=== PATIENT | female | born 1990 | race Two or more races ===

== ENCOUNTER 2017-08-06 05:50 | Inpatient (IN) | payer BC ==
[2017-08-06] MEDS ORDERED: TERBUTALINE 1 MG/ML VIAL SQ PRN (05:58)
[2017-08-06] MEDS ORDERED: OXYTOCIN 10 UNIT/ML 1 ML VIAL IM PRN (05:58)
[2017-08-06] MEDS ORDERED: METHYLERGONOVINE 0.2 MG/ML 1 ML AMP IM PRN (05:58)
[2017-08-06] MEDS ORDERED: LIDOCAINE 1% (PF) 10 MG/ML (30 ML SDV) SQ PRN (05:58)
[2017-08-06] MEDS ORDERED: CARBOPROST TROMETHAMINE 250 MCG/ML 1 ML AMP IM PRN (05:58)
[2017-08-06 06:04] VITALS: BMI 42.7
[2017-08-06 06:14] LABS: Basophils % (A) 0 %; Eosinophils # (A) 0.1 k/uL (0-0.7); Eosinophils % (A) 1 %; HGB 14.6 gm/dL (11.4-16.0); Lymphocytes # (A) 2.3 k/uL (1.0-4.8); Lymphocytes % (A) 21 %; MCH 31.9 pg (25.0-35.0); MCHC 36.4 g/dL (31.0-37.0); MCV 87.8 fL (80.0-100.0); Mean Platelet Volume 7.9; Monocytes # (A) 0.6 k/uL (0-1.0); Monocytes % (A) 6 %; Neutrophils # (A) 7.5 k/uL (1.3-7.7); Neutrophils % (A) 70 %; Platelet Count 242 k/uL (150-450); RBC 4.56 m/uL (3.80-5.40); RDW 13.9 % (11.5-15.5); WBC 10.7 k/uL (3.8-10.6)
[2017-08-06] MEDS: LACTATED RINGERS 1,000 ML IV SCH ×3 (06:14→15:41)
[2017-08-06] MEDS: OXYTOCIN 20 UNITS/1000 ML NS 1,000 ML IV SCH (06:27)
--- NOTE | 2017-08-06 06:59 | P.HPOB ---
History of Present Illness H&P Date: 08/06/17 This is a 27-year-old white female 1 para 0 EDC 08/01/2017 at 40-5/7 weeks' gestation. Patient presents today for induction for postdates . Fetus is been active throughout the . Hernandez score noted to be 9. She denies vaginal bleeding or fluid leakage. Obstetric history significant for blood type A+, rubella status immune. VDRL testing, urine culture, hepatitis B surface antigen, HIV testing, gonorrhea and chlamydia cultures, group B strep cultures all negative. One-hour Glucola elevated, 3 hour GTT within normal limits. Past surgical history significant for wisdom teeth extraction. Current medications vitamins. ALLERGIES none known. Social history patient is , she is a nonsmoker, she denies alcohol or drug use. She is a teacher locally. On exam this is a pleasant white female, 5 foot 4 inches, 249 pounds, blood pressure 133/65. The general physical exam is within normal limits. The chest is clear in all cotton. Extremities reveal 2+ edema. Cervix is 1 cm dilated, soft, anterior, -1 station, vertex presentation, 60% effaced. Artificial amniorrhexis reveals clear fluid. heart rate is consistent with reactive NST. Impression: 40-5/7 weeks intrauterine , here for induction for postdates. Plan continue oxytocin augmentation per hospital protocol. Continue close maternal and surveillance. Anticipate normal spontaneous vaginal delivery. Review of Systems Constitutional: Reports as per HPI Past Medical History Past Medical History: No Reported History History of Any Multi-Drug Resistant Organisms: None Reported Past Surgical History: No Surgical Hx Reported Past Anesthesia/Blood Transfusion Reactions: No Reported Reaction Past Psychological History: No Psychological Hx Reported Smoking Status: Never smoker - Past Family History Mother Family Medical History: No Reported History Medications and Allergies Home Medications Medication Instructions Recorded Confirmed Type Pnv No.95/Ferrous Fum/Folic AC 1 each PO DAILY 08/06/17 08/06/17 History [ Multivitamin Tablet] Allergies Allergy/AdvReac Type Severity Reaction Status Date / Time No Known Allergies Allergy Verified 08/06/17 05:57 Exam - Vital Signs Vital signs: Vital Signs Temp Pulse Resp BP Pulse Ox 08/06/17 05:59 97.2 F L 109 H 16 133/65 98 Intake and Output 08/05/17 08/05/17 08/06/17 14:59 22:59 06:59 Other: # Voids 1 Weight 112.945 kg Patient Weight 08/06/17 06:59 Weight 112.945 kg See dictation under HPI please Results Result Diagrams: 08/06/17 06:00 Abnormal Lab Results - Last 24 Hours (Table) 08/06/17 Range/Units 06:00 WBC 10.7 H (3.8-10.6) k/uL Assessment and Plan Plan: Close maternal and surveillance. Oxytocin per hospital protocol. Anticipate normal spontaneous vaginal delivery. Time with Patient: Less than 30
[2017-08-06] MEDS ORDERED: BUTORPHANOL 1 MG/ML 1 ML VIAL IV PRN (11:08)
[2017-08-06] MEDS ORDERED: BUPIVACAINE (PF) 0.25% 30 ML VIAL ONE (15:01)
[2017-08-06] MEDS ORDERED: fentaNYL (PF) 50 MCG/ML 5 ML AMP ONE (15:01)
[2017-08-06] MEDS ORDERED: SODIUM CHLORIDE 0.9% 100 ML BAG ONE (15:01)
[2017-08-06] MEDS ORDERED: CITRIC ACID-SODIUM CITRATE 15 ML CUP PO ONE (18:42)
[2017-08-06] MEDS ORDERED: MORPHINE SULFATE (PF) 0.3 MG/0.3 ML SYR ONE (18:59)
[2017-08-06] MEDS ORDERED: ceFAZolin 1,000 MG VIAL ONE (18:59)
[2017-08-06] MEDS ORDERED: KETOROLAC 30 MG/ML 1 ML VIAL ONE (18:59)
[2017-08-06] MEDS ORDERED: OXYTOCIN 10 UNIT/ML 1 ML VIAL ONE (18:59)
[2017-08-06] MEDS ORDERED: DEXAMETHASONE SOD PHOS (MDV) 100 MG/10 ML VIAL ONE (18:59)
[2017-08-06] MEDS ORDERED: diphenhydrAMINE 50 MG/ML 1 ML VIAL IVP PRN ×3 (19:52→19:58)
[2017-08-06] MEDS ORDERED: ONDANSETRON 4 MG/2 ML VIAL IVP PRN (19:52)
[2017-08-06] MEDS ORDERED: Acetaminophen-Codeine 300-30mg TAB PO PRN (19:52)
[2017-08-06] MEDS ORDERED: diphenhydrAMINE 25 MG CAP PO PRN (19:52)
[2017-08-06] MEDS ORDERED: diphenhydrAMINE 50 MG CAP PO PRN (19:52)
[2017-08-06] MEDS ORDERED: SIMETHICONE 80 MG CHEWABLE PO PRN (19:52)
[2017-08-06] MEDS ORDERED: METOCLOPRAMIDE 5 MG/ML 2 ML VIAL IVP PRN (19:52)
[2017-08-06] MEDS ORDERED: NALOXONE 0.4 MG/ML 1 ML VIAL IV PRN ×2 (19:52→19:58)
[2017-08-06] MEDS ORDERED: ZOLPIDEM 5 MG TAB PO PRN (19:52)
--- NOTE | 2017-08-06 19:52 | P.OP ---
Date of Procedure: 08/06/17 Preoperative Diagnosis: 40-5/7 weeks' gestation, arrest of dilatation and descent Postoperative Diagnosis: Same, macrosomia, 10 lbs. 5 oz. male, left occiput transverse position Procedure(s) Performed: Primary low transverse section Anesthesia: epidural Surgeon: Amalia Russell Scientific Manager #1: Nba Das Estimated Blood Loss (ml): 600 IV fluids (ml): 1,000 Urine output (ml): 200 Pathology: other (Placenta) Condition: stable Disposition: PACU Description of Procedure: Patient had arrest of dilatation and descent at 4 cm, 90%, -2. No cervical change was noted over the course of 3 hours. Decision was made to proceed with primary low transverse section under previously placed epidural analgesia. This was "topped off" per the anesthesia staff. Ramirez catheter placed, Bicitra given, antibiotics given. Patient is brought to the operating room and placed in the dorsal supine position with left lateral uterine displacement. The appropriate timeout is performed to assure proper patient and procedural identification. The abdomen is prepped and draped in usual sterile fashion, the analgesia is checked and noted to be adequate. A low transverse skin incision is made in this is carried down through the subcutaneous tissue that is approximately 8 cm deep. Fascia is isolated, scored and extended bilaterally with curved Sorenson scissors. Peritoneum is next identified and incised, there is no bowel or bladder involvement. A low transverse uterine incision is made in this is carried down through the myometrium. The infant is found to be in the left occiput transverse position and the head is brought up through the uterine incision. There is no nuchal cord noted. The patient is officially delivered of a liveborn male infant at 1912 hrs. Umbilical cord is doubly clamped and ligated , he is handed to waiting nurses for evaluation where scores of 9 and 9 at one and 5 minutes respectively are given. The placentas delivered manually, it is inspected and noted to be intact with trivascular cord at 1913 hrs. At this time the uterus is externalized and massaged. Bladder blade is placed over the dome of the bladder. The uterus is swept clean with a sterile sponge to avoid any retained products of conception. The edges of the incision are grasped with Lopez clamps. The uterus is closed in a two-step fashion, first layer running locking, second layer imbricated. Ramirez is noted to be draining clear urine throughout the procedure. Uterus is gently placed back into the abdominal cavity, bilateral gutters are inspected and cleaned. The abdomen is suctioned with suction on guard. The incision of the uterus is again hemostatically intact, well approximated. Both tubes and ovaries appear normal to inspection. The peritoneum was allowed to close by secondary intention. The fascia is closed in a running stitch of 0 Vicryl with over ligation in the midline for excellent approximation. Subcutaneous tissue is irrigated, noted to be clean and dry. It is reapproximated with 3-0 Vicryl in a running fashion. 4-0 undyed Monocryl is used for final skin closure in a subcuticular manner. Steri-Strips and Mastisol are applied to the wound, dressing is applied. Uterus is then massaged and a small amount of blood is expressed. A cleaned. Pad is placed. All sponge needle and enhancement counts are correct at the end of the procedure. Patient is brought back to recovery room in very good condition with stable vital signs including a pulse of 105, blood pressure 118/ 62, 100% O2 saturation. Infant's weight 10 lbs. 5 oz. or 4690 g. The family is requesting circumcision further infant son.
[2017-08-07] MEDS: LACTATED RINGERS 1,000 ML IV SCH ×3 (00:29→20:42)
[2017-08-07] MEDS: IBUPROFEN 600 MG TAB PO PRN ×3 (04:13→16:35)
[2017-08-07] MEDS: SENNOSIDES-DOCUSATE SODIUM 1 EACH TAB PO SCH ×4 (04:13→19:46)
--- NOTE | 2017-08-07 05:36 | P.PN ---
Progress Note - Text Progress Note Date: 08/07/17 Patient was seen at 5:30 am. 27 yo female Status post . Post-op day # 1. Patient received Epiduralal Duramorph. Patient was seen today, sitting up in bed no complaints, pain VAS score 0/10, no headache, no itching, no nausea and vomiting. Assessment and plan: Doing well in general no complications from anesthesia.
--- NOTE | 2017-08-07 07:55 | P.PN ---
Subjective Progress Note Date: 08/07/17 Principal diagnosis: Postoperative day #1 Slept well, positive flatus, no complaints. Pain well controlled. Objective - Vital Signs Vital signs: Vital Signs Temp 98 F 08/07/17 04:00 Pulse 79 08/07/17 04:00 Resp 16 08/07/17 06:00 BP 119/70 08/07/17 04:00 Pulse Ox 100 08/06/17 21:45 Intake & Output 08/06/17 08/07/17 08/07/17 18:59 06:59 18:59 Intake Total 2000 Output Total 2600 Balance 2000 -2600 Intake: Intake, IV Titration 2000 Amount Lactated Ringers 1,000 ml 2000 @ 125 mls/hr IV .Q8H EMILY Rx#:[id number] Output: Urine 2600 Other: Voiding Method Indwelling Catheter # Voids 0 - Constitutional General appearance: Present: average body habitus, cooperative - EENT Eyes: Present: PERRLA ENT: Present: hearing grossly normal - Neck Neck: Present: normal ROM Thyroid: bilateral: normal size - Respiratory Respiratory: bilateral: CTA - Cardiovascular Rhythm: regular - Gastrointestinal General gastrointestinal: Present: normal bowel sounds - Integumentary Integumentary: Present: normal - Neurologic Neurologic: Present: CNII-XII intact - Musculoskeletal Musculoskeletal: Present: gait normal, strength equal bilaterally - Psychiatric Psychiatric: Present: A&O x's 3, appropriate affect, intact judgment & insight - Labs CBC & Chem 7: 08/06/17 06:00 Assessment and Plan Plan: Continue postoperative care. Circumcision performed this morning. Advanced diet and activity. Possible discharge home tomorrow. Time with Patient: Less than 30
[2017-08-07 09:42] LABS: Basophils % (A) 0 %; Eosinophils # (A) 0.1 k/uL (0-0.7); Eosinophils % (A) 0 %; HCT 35.8 % (34.0-46.0); HGB 12.8 gm/dL (11.4-16.0); Lymphocytes # (A) 1.6 k/uL (1.0-4.8); Lymphocytes % (A) 13 %; MCH 32.4 pg (25.0-35.0); MCHC 35.8 g/dL (31.0-37.0); MCV 90.6 fL (80.0-100.0); Mean Platelet Volume 7.9; Monocytes # (A) 0.8 k/uL (0-1.0); Monocytes % (A) 6 %; Neutrophils # (A) 9.8 k/uL (1.3-7.7); Neutrophils % (A) 79 %; Platelet Count 210 k/uL (150-450); RBC 3.95 m/uL (3.80-5.40); RDW 14.2 % (11.5-15.5); WBC 12.4 k/uL (3.8-10.6)
[2017-08-07] MEDS: ACETAMINOPHEN TAB 325 MG TAB PO PRN ×2 (15:47→19:46)
[2017-08-07] MEDS: OXYTOCIN 20 UNITS/1000 ML NS 1,000 ML IV SCH (20:42)
[2017-08-08] MEDS: IBUPROFEN 600 MG TAB PO PRN ×4 (00:04→23:58)
[2017-08-08] MEDS: ACETAMINOPHEN TAB 325 MG TAB PO PRN ×4 (04:01→20:01)
[2017-08-08] MEDS: SENNOSIDES-DOCUSATE SODIUM 1 EACH TAB PO SCH ×2 (07:42→20:02)
--- NOTE | 2017-08-08 08:03 | P.DS ---
Providers Date of admission: 08/06/17 05:50 Expected date of discharge: 08/08/17 Attending physician: Amalia Russell Primary care physician: Stated None Hospital Course: This is a 27-year-old white female 1 para 0 EDC 08/01/2017 at 40-5/7 weeks' gestation. Patient presented for induction for postdates . She progressed to 4 cm dilatation but then had arrest of dilatation and descent , and underwent a primary low transverse section. She gave to a liveborn male with scores of 9 and 9, he weighed 10 lbs. 5 oz. or 4690 g. He was in the left occiput transverse position. There was an estimated blood loss of 600 mL recorded. Please see dictated history and physical as well as operative note for details. This morning the patient is doing well. She is voiding, ambulate in, passing flatus without difficulty. Vital signs are stable and she is afebrile. Extremities reveal trace edema. Incision is clean and dry, intact, with Steri- Strips well approximated. circumcision has been performed. AB seems to be doing well, breast-feeding is progressing nicely. Patient is given a prescription for a double electric breast pump per her request. Fundus is firm and in the midline, symmetric and 18 week size. Lochia rubra is minimal to moderate. Patient is being discharged home in very good condition. She will follow-up with me in the office in 2 weeks for incision check. I reminded her no driving , no intercourse, no tampons or douching. She will use [id number] ibuprofen products as needed for pain, 200 mg pills, 3 every 6 hours as needed. I've asked her to call me with any fevers shakes or chills, foul smelling or copious lochia, with the passage of large blood clots, or indeed with any problems issues or complaints. Patient Condition at Discharge: Good Plan - Discharge Summary New Discharge Prescriptions: No Action Pnv No.95/Ferrous Fum/Folic AC [ Multivitamin Tablet] 1 each PO DAILY Discharge Medication List Pnv No.95/Ferrous Fum/Folic AC [ Multivitamin Tablet] 1 each PO DAILY [History] Follow up Appointment(s)/Referral(s): Amalia Russell MD [STAFF PHYSICIAN] - 2 Weeks Discharge Disposition: HOME SELF-CARE
[2017-08-09] MEDS: ACETAMINOPHEN TAB 325 MG TAB PO PRN ×2 (04:41→20:50)
[2017-08-09] MEDS: IBUPROFEN 600 MG TAB PO PRN ×2 (10:54→19:01)
[2017-08-09] MEDS: SENNOSIDES-DOCUSATE SODIUM 1 EACH TAB PO SCH ×2 (10:55→21:27)
[2017-08-10] MEDS: IBUPROFEN 600 MG TAB PO PRN ×2 (04:48→12:31)
[2017-08-10] MEDS: SENNOSIDES-DOCUSATE SODIUM 1 EACH TAB PO SCH (08:57)
[2017-08-10] MEDS: ACETAMINOPHEN TAB 325 MG TAB PO PRN (08:58)
[2017-08-10 09:03] VITALS: BP 146/74; PULSE 86; RESP 16; TEMP 98.5
--- NOTE | 2017-08-10 09:11 | P.PN ---
Subjective Progress Note Date: 08/10/17 Principal diagnosis: Postop day 4 status post primary low transverse section secondary to arrest of labor, suspected macrosomia On this postoperative day #4 she is doing well. She is ambulating and voiding without difficulty, her pain is well-controlled. She denies concerns. She did stay secondary to a jaundice issue, and the baby has been on a bili blanket in the room. He is improving and possibly could be discharged home today. min does realize that today she will be discharged in addition Objective - Vital Signs Vital signs: Vital Signs Temp 98.5 F 08/10/17 08:00 Pulse 86 08/10/17 08:00 Resp 16 08/10/17 08:00 BP 146/74 08/10/17 08:00 Pulse Ox 99 08/10/17 00:00 - Constitutional General appearance: Present: cooperative, no acute distress - Gastrointestinal Gastrointestinal Comment(s): incision c/d/i General gastrointestinal: Present: soft - Labs CBC & Chem 7: 08/07/17 09:09 Assessment and Plan (1) Term Current Visit: Yes Status: Acute Code(s): Z34.80 - ENCOUNTER FOR SUPRVSN OF NORMAL , UNSP TRIMESTER SNOMED Code(s): 56445553 (2) Status post delivery Narrative/Plan: will plan d/c home today routine post op care instructions are rviewed with pt, she will call for post op appt. Current Visit: Yes Status: Acute Code(s): Z98.891 - HISTORY OF UTERINE SCAR FROM PREVIOUS SURGERY SNOMED Code(s): 491255048 Time with Patient: Less than 30
--- NOTE | 2017-08-10 09:12 | P.PN ---
Subjective Progress Note Date: 08/09/17 Principal diagnosis: POD 3 LTCS secondary to arrest of labor and suspected macrosomia. Patient has done well postoperatively, she was anticipating discharge today but secondary to infant needing further light therapy she elected to stay. She is doing well postoperatively, lochia is minimal, ambulating and voiding without difficulty. She is without complaints on this postop day #3 Objective - Vital Signs Vital signs: Vital Signs Temp 98.7 F 08/09/17 15:57 Pulse 90 08/09/17 15:57 Resp 18 08/09/17 15:57 BP 149/82 08/09/17 15:57 Pulse Ox 98 08/09/17 15:57 Intake & Output 08/09/17 08/09/17 08/10/17 06:59 18:59 06:59 Other: # Voids 1 - Constitutional General appearance: Present: cooperative, no acute distress - Gastrointestinal Gastrointestinal Comment(s): Incision is noted to be clean dry and intact - Labs CBC & Chem 7: 08/07/17 09:09 Assessment and Plan (1) Term Current Visit: Yes Status: Acute Code(s): Z34.80 - ENCOUNTER FOR SUPRVSN OF NORMAL , UNSP TRIMESTER SNOMED Code(s): 88485575 (2) Status post delivery Narrative/Plan: Doing well postoperatively will continue routine postoperative care Current Visit: Yes Status: Acute Code(s): Z98.891 - HISTORY OF UTERINE SCAR FROM PREVIOUS SURGERY SNOMED Code(s): 729897303 Time with Patient: Less than 30
== END 2017-08-10 15:20 | disposition home or self-care (01) | DRG 766 ==
LOC: 4FBP 05:50
PROVIDERS: ADMIT Obstetrics & Gynecology; ATTEND Obstetrics & Gynecology
PROC: 10D00Z1 Extraction of Products of Conception, Low, Open Approach (ICD-10-PCS; principal; 2017-08-06 19:16)
PROC: 3E0R3NZ Introduction of Analgesics, Hypnotics, Sedatives into Spinal Canal, Percutaneous Approach (ICD-10-PCS; principal; 2017-08-06 19:16)
PROC: 10907ZC Drainage of Amniotic Fluid, Therapeutic from Products of Conception, Via Natural or Artificial Opening (ICD-10-PCS; principal; 2017-08-06 19:16)
PROC: 3E033VJ Introduction of Other Hormone into Peripheral Vein, Percutaneous Approach (ICD-10-PCS; principal; 2017-08-06 19:16)
DX: O48.0 Post-term pregnancy (principal); O32.4XX0 Maternal care for high head at term, not applicable or unspecified; O36.63X0 Maternal care for excessive fetal growth, third trimester, not applicable or unspecified; Z37.0 Single live birth; Z3A.40 40 weeks gestation of pregnancy; O62.0 Primary inadequate contractions
CPT/HCPCS: 85025; 86850; 86900; 86901; 88307

== ENCOUNTER → 2021-07-26 | Outpatient (CLI) | payer BC ==
--- NOTE | 2021-07-27 11:20 | MM ---
Reason for exam: clinical finding. Baseline mammogram. History: Family history of breast cancer in maternal grandmother. Physical Findings: A clinical breast exam by your physician is recommended on an annual basis and results should be correlated with mammographic findings. MG 3D Diag Mammo W/Cad WOODY Bilateral CC and MLO view(s) were taken. The breast tissue is extremely dense which could obscure a lesion on mammography. There is no discrete abnormality including area of concern. These results were verbally communicated with the patient and result sheet given to the patient on 07/26/21. ASSESSMENT: Incomplete: need additional imaging evaluation, BI-RAD 0 RECOMMENDATION: Ultrasound of the right breast. (palpable) Manage patient on a clinical basis.
--- NOTE | 2021-07-27 11:21 | USB ---
Reason for exam: additional evaluation requested from abnormal screening. History: Family history of breast cancer in maternal grandmother. US Breast Limited RT Right limited breast ultrasound including focal area of concern, retroareolar and axilla demonstrates no cystic or solid lesion seen. These results were verbally communicated with the patient and result sheet given to the patient on 07/26/21. ASSESSMENT: Negative, BI-RAD 1 RECOMMENDATION: Routine screening mammogram of both breasts at age 40. Manage patient on a clinical basis.
== END | disposition home or self-care (01) ==
LOC: RADMAMWWP 13:24
PROVIDERS: ATTEND Obstetrics & Gynecology
DX: N63.0 Unspecified lump in unspecified breast (principal); Z80.3 Family history of malignant neoplasm of breast
CPT/HCPCS: 77062; 77066

== ENCOUNTER → 2023-03-28 | Outpatient (CLI) | payer BC ==
[2023-03-28 10:36] LABS: Amorphous Sediment,Urine Rare /hpf; Appearance,Urine Cloudy (Clear); Bacteria,Urine Moderate /hpf; Bilirubin,Urine Negative (Negative); Blood,Urine Negative (Negative); Calcium Oxalate Crystals,Urine Occasional /hpf; Color,Urine Yellow; Glucose,Urine (UA) 3+ (Negative); Ketones,Urine Trace (Negative); Leukocyte Esterase,Urine Trace (Negative); Mucus,Urine Few /hpf; Nitrite,Urine Negative (Negative); PH, Urine 6.5 (5.0-8.0); Protein,Urine 1+ (Negative); RBC,Urine 1 /hpf (0-5); Specific Gravity,Urine 1.028 (1.001-1.035); Squamous Epithelial Cell,Urine 5 /hpf (0-4); Urobilinogen,Urine <2.0 mg/dL (<2.0); WBC,Urine 7 /hpf (0-5)
--- NOTE | 2023-03-28 12:37 | US ---
EXAMINATION TYPE: US OB BPP wo non-stress DATE OF EXAM: 03/28/2023 COMPARISON: NONE CLINICAL INDICATION: Female, 32 years old with history of nonreactive NST; TECHNIQUE: Transabdominal (TA). Scoring by the program aide group work during real-time assessment. FINDINGS: BPP PARAMETERS: PRESENTATION: Vertex HEART RATE: 156 bpm RHYTHM: Normal HOMER: 13.6 DIAPHRAGM IMAGED: YES BPP SCORIN. Breathin (1 episode of breathing of 30 second duration in 30 minutes of scanning time) 2. Movement: 2 (at least 3 discrete body movements in 30 minutes) 3. Tone: 2 (1 episode of active flexion/extension of limb) 4. HOMER: 2 (HOMER index > 5cm) IMPRESSION: TOTAL SCORE: 8 / 8
[2023-03-28 12:39] LABS: Basophils % (A) 0 %; Eosinophils # (A) 0.1 k/uL (0-0.7); Eosinophils % (A) 1 %; HCT 37.7 % (34.0-46.0); Lymphocytes # (A) 1.8 k/uL (1.0-4.8); Lymphocytes % (A) 20 %; MCH 31.3 pg (25.0-35.0); MCHC 34.6 g/dL (31.0-37.0); MCV 90.6 fL (80.0-100.0); Mean Platelet Volume 8.6; Monocytes # (A) 0.5 k/uL (0-1.0); Monocytes % (A) 5 %; Neutrophils # (A) 6.3 k/uL (1.3-7.7); Neutrophils % (A) 72 %; Platelet Count 245 k/uL (150-450); RBC 4.16 m/uL (3.80-5.40); RDW 13.9 % (11.5-15.5); WBC 8.8 k/uL (3.8-10.6)
[2023-03-28 12:58] LABS: ALT 13 U/L (4-34); AST 22 U/L (14-36); African American GFR (CKD) >90 (>60 ml/min/1.73 sqM); Alkaline Phosphatase 148 U/L (38-126); Anion Gap 9 mmol/L; Blood Urea Nitrogen 4 mg/dL (7-17); Calcium 8.5 mg/dL (8.4-10.2); Carbon Dioxide 17 mmol/L (22-30); Chloride 109 mmol/L (98-107); Glucose 88 mg/dL (74-99); Non-African American GFR(CKD) >90 (>60 ml/min/1.73 sqM); Potassium 3.9 mmol/L (3.5-5.1); Sodium 135 mmol/L (137-145); Total Bilirubin 0.4 mg/dL (0.2-1.3); Total Protein 5.6 g/dL (6.3-8.2); Uric Acid 3.9 mg/dL (3.7-7.4)
[2023-03-28 12:59] LABS: Creatinine,Urine Random 163.2 mg/dL; Protein/Creatinine Ratio,Urine 0.067
[2023-03-28 13:48] VITALS: BP 128/76; RESP 18; TEMP 96.6
--- NOTE | 2023-04-08 09:16 | P.MSEPDOC ---
Presenting Problems - Arrival Data Date of Arrival on Unit: 03/28/23 Time of Arrival on Unit: 09:15 Mode of Transport: Ambulatory - Complaint OB-Reason for Admission/Chief Complaint: PIH Comment: Pt stated she had an episode of feeling like her heart was racing, difficulty breathing and a BP of 148/84 on auotmatic cuff at home Medical History - Information : 2 Para: 1 Term: 1 : 0 Abortions: Spontaneous or Elective: 0 Number of Living Children: 1 - Gestational Age Gestational Age by DEYANIRA (wks/days): 38 Weeks and 1 Days - History Complications: Prior Review of Systems - Review of Systems Constitutional: No problems Breast: No problems ENT: No problems Cardiovascular: No problems Respiratory: No problems Gastrointestinal: No problems Genitourinary: No problems Musculoskeletal: No problems Neurological: No problems Skin: No problems Vital Signs - Temperature Temperature: 96.6 F Temperature Source: Temporal Artery Scan - Respirations Respiratory Rate: 18 Oxygen Delivery Method: Room Air O2 Sat by Pulse Oximetry: 97 - Blood Pressure Right Arm Blood Pressure: 128/76 Blood Pressure Mean: 93 Blood Pressure Source: Automatic Cuff Medical Screen Scoring - Uterine Contractions Resting: Soft to palpation - Assessment - Baby A Baseline FHR: 150's Heart Rate - NICHD Category: Category I (Normal) NST: Non-reactive Physician Notification - Physician Notified Physician Notified Date: 03/28/23 Physician Notified Time: 10:06 Physician: Kimberly Malcolm New Order Received: Yes - Notification Comment Comment: Orders for triage visit: NST, UA, oral hydration, P/c urine ratio, CBS w diff, CMP, uric acid, BPP Maternal Triage Index - Maternal Triage Index Presenting for scheduled procedure w/no complaint: No - Stat/Priority 1 Stat Priority 1: No - Urgent/Priority 2 Urgent Priority 2: Yes Provider Notified: Kimberly Malcolm Provider Notified Time: 10:06 Criteria Met for Priority 2: High BP on home automatic cuff 148/84 Disposition - Disposition OB Disposition: Physician follow up in office, Triage, Discharge to home, Written follow up instructions reviewed Transferred to:: Home Discharge Date: 03/28/23 Discharge Time: 13:13 I agree with the RN Medical Screening Exam: Yes Physician's MSE Comment: I have neither seen nor examined the patient Case reviewed; plan agreed upon as documented in EMR&OBIX.: Yes Diagnosis: MATERNAL CARE FOR PROBLEM, UNSP, THIRD * DO NOT USE *
== END | disposition home or self-care (01) ==
LOC: FBPOP 09:15
PROVIDERS: ATTEND Obstetrics & Gynecology
DX: O13.3 Gestational [pregnancy-induced] hypertension without significant proteinuria, third trimester (principal); Z3A.38 38 weeks gestation of pregnancy; Z91.048 Other nonmedicinal substance allergy status; Z79.82 Long term (current) use of aspirin
CPT/HCPCS: 59025; 76819; 80053; 81001; 82570; 84156; 84550; 85025; 99213

== ENCOUNTER 2023-04-03 09:55 | Inpatient (IN) | payer BC ==
[2023-04-03] MEDS ORDERED: CARBOPROST TROMETHAMINE 250 MCG/ML 1 ML AMP IM PRN (10:46)
[2023-04-03] MEDS ORDERED: CITRIC ACID-SODIUM CITRATE 15 ML CUP PO ONE (10:46)
[2023-04-03] MEDS ORDERED: miSOPROStoL 200 MCG TAB PO PRN (10:46)
[2023-04-03] MEDS ORDERED: ceFAZolin 3 GM in SODIUM CHLORIDE 0.9% 100 ML IVPB ONE (10:46)
[2023-04-03] MEDS ORDERED: LACTATED RINGERS 1,000 ML IV ONE (10:46)
[2023-04-03] MEDS ORDERED: TRANEXAMIC 1,000 MG/100ML-NACL 1,000 MG in EMPTY BAG 1 BAG IV PRN (10:46)
[2023-04-03] MEDS ORDERED: OXYTOCIN 10 UNIT/ML 1 ML VIAL IM PRN (10:46)
[2023-04-03] MEDS ORDERED: METHYLERGONOVINE 0.2 MG/ML 1 ML AMP IM PRN (10:46)
[2023-04-03] MEDS ORDERED: LACTATED RINGERS 1,000 ML IV SCH (11:00)
[2023-04-03 11:24] LABS: Basophils % (A) 0 %; Eosinophils # (A) 0.1 k/uL (0-0.7); Eosinophils % (A) 1 %; HCT 36.6 % (34.0-46.0); HGB 12.4 gm/dL (11.4-16.0); Lymphocytes # (A) 1.4 k/uL (1.0-4.8); Lymphocytes % (A) 13 %; MCH 30.1 pg (25.0-35.0); MCV 88.3 fL (80.0-100.0); Mean Platelet Volume 9.3; Monocytes # (A) 0.7 k/uL (0-1.0); Monocytes % (A) 6 %; Neutrophils # (A) 8.3 k/uL (1.3-7.7); Neutrophils % (A) 78 %; Platelet Count 224 k/uL (150-450); RBC 4.14 m/uL (3.80-5.40); WBC 10.7 k/uL (3.8-10.6)
--- NOTE | 2023-04-03 11:28 | P.HPOB ---
History of Present Illness H&P Date: 04/03/23 Chief Complaint: Scheduled repeat section with bilateral salpingectomy Ms. Morales is a 32 year old at 39 weeks and 0 days with EDC of 04/10/2023 (by LMP consistent with 8 week US) who presents to labor and delivery today for scheduled repeat section with bilateral salpingectomy. The has been complicated by large for gestational age fetus measuring in the 90%ile. The patient has also struggled with depression, for which she was started on Zoloft with great results. history: 1 FTCS workup: blood type A positive, antibody negative, rubella immune, VDRL non-reactive, HIV negative, HBsAg negative, HCV Ab negative, gonorrhea negative, chlamydia negative, 1 hour GTT elevated > 3 hour GTT within normal limits, GBS negative. s/p TDap on 01/21/2023. Past Medical History Past Medical History: No Reported History History of Any Multi-Drug Resistant Organisms: None Reported Past Surgical History: Section Additional Past Surgical History / Comment(s): wisdom teeth Past Anesthesia/Blood Transfusion Reactions: No Reported Reaction Past Psychological History: Depression Additional Psychological History / Comment(s): low grade depression Smoking Status: Never smoker Past Alcohol Use History: None Reported Past Drug Use History: None Reported - Past Family History Mother Family Medical History: No Reported History Medications and Allergies Home Medications Medication Instructions Recorded Confirmed Type Pnv No.95/Ferrous Fum/Folic AC 1 each PO DAILY 08/06/17 04/03/23 History [ Multivitamin Tablet] Aspirin [Adult Low Dose Aspirin EC] 81 mg PO DAILY 03/28/23 04/03/23 History Cetirizine HCl [Zyrtec] 10 mg PO DAILY 03/28/23 04/03/23 History Sertraline [Zoloft] 50 mg PO DAILY 03/28/23 04/03/23 History Allergies Allergy/AdvReac Type Severity Reaction Status Date / Time tape AdvReac Itching Uncoded 04/03/23 10:23 Exam Vital Signs Temp Pulse Resp BP Pulse Ox 04/03/23 10:23 97.8 F 95 18 126/75 97 Intake and Output 04/02/23 04/03/23 04/03/23 22:59 06:59 14:59 Other: Weight 122.924 kg Focused physical exam is performed. This is a gravid woman in no apparent distress. Breathing is non-labored. Abdomen is gravid and non-tender. heart tones are reactive and reassuring on NST. Extremities are non-tender and non-edematous. Assessment and Plan Assessment: 32 year old at 39 weeks and 0 days presenting for repeat c/s with bilateral salpingectomy Plan: NPO, mIVF, IV Ancef, c/s protocol
[2023-04-03] MEDS ORDERED: PHENYLEPHRINE-0.9% NACL SYG 1,000 MCG/10 ML SYRINGE ONE (12:04)
[2023-04-03] MEDS ORDERED: KETOROLAC 15 MG/ML 1 ML VIAL ONE (12:04)
[2023-04-03] MEDS ORDERED: OXYTOCIN 30 UNITS/500 ML NS BAG IV ONE (12:04)
[2023-04-03] MEDS ORDERED: ONDANSETRON 4 MG/2 ML VIAL ONE (12:04)
[2023-04-03] MEDS ORDERED: MORPHINE SULFATE (PF) 0.3 MG/0.3 ML SYR ONE (12:04)
[2023-04-03] MEDS ORDERED: ePHEDrine 50 MG/ML 1 ML VIAL ONE (12:04)
[2023-04-03] MEDS ORDERED: NALBUPHINE 10 MG/ML (10 ML MDV) ONE (12:04)
[2023-04-03] MEDS ORDERED: MORPHINE SULFATE 2 MG/ML SYRINGE IVP PRN (13:01)
[2023-04-03] MEDS ORDERED: KETOROLAC 15 MG/ML 1 ML VIAL IVP PRN (13:01)
[2023-04-03] MEDS ORDERED: NALOXONE 0.4 MG/ML 1 ML VIAL IV PRN ×2 (13:01→13:08)
[2023-04-03] MEDS ORDERED: NALBUPHINE 10 MG/ML (10 ML MDV) IV PRN (13:01)
[2023-04-03] MEDS ORDERED: METOCLOPRAMIDE 5 MG/ML 2 ML VIAL IVP PRN ×2 (13:01→13:08)
[2023-04-03] MEDS ORDERED: diphenhydrAMINE 50 MG/ML 1 ML VIAL IVP PRN ×3 (13:01→13:08)
[2023-04-03] MEDS ORDERED: LANOLIN CREAM 5 GM TUBE TOPICAL PRN (13:08)
[2023-04-03] MEDS ORDERED: diphenhydrAMINE 50 MG CAP PO PRN (13:08)
[2023-04-03] MEDS ORDERED: ONDANSETRON 4 MG/2 ML VIAL IVP PRN (13:08)
[2023-04-03] MEDS ORDERED: SIMETHICONE 80 MG CHEWABLE PO PRN (13:08)
[2023-04-03] MEDS ORDERED: ZOLPIDEM 5 MG TAB PO PRN (13:08)
--- NOTE | 2023-04-03 13:08 | P.OP ---
Date of Procedure: 04/03/23 Preoperative Diagnosis: 1. Term IUP at 39 weeks 2. History of Prior Section 3. No desire for TOLAC 4. Gestational Hypertension 5. Desires permanent sterilization Postoperative Diagnosis: Same Procedure(s) Performed: Repeat Lower Transverse Section with Bilateral Salpingectomy Implants: None Anesthesia: spinal Surgeon: Kimberly Malcolm [employer] #1: Martha Malhotra Estimated Blood Loss (ml): 700 IV fluids (ml): 800 Urine output (ml): 100 (clear yellow) Pathology: none sent Condition: stable Disposition: floor Indications for Procedure: Ms. Morales is a at 39 weeks with history of prior section who does not desire trial of labor and requests repeat section. She also requests permanent sterilization with bilateral salpingectomy. The risks, benefits, and alternatives to section were discussed with the patient including risk of bleeding, infection, damage to surrounding structures including bladder/bowels/ureters, and post-operative VTE. She understands that bilateral salpingectomy is non-reversible and she will never be able to get again without IVF. The patient understands these risks and desires to proceed with section. Operative Findings: Colorless amniotic fluid, right occiput transverse presentation of head. Viable male infant weighing 9 pounds and 12 ounces (4410 grams) with apgars of 8 and 9 at 1- and 5-minutes, respectively. Normal uterus, bilateral fallopian tubes, and ovaries. Description of Procedure: The patient was taken to the operating room where spinal anesthesia was found to be adequate. Three grams were given for infection prophylaxis. She was prepared and draped in the dorsal supine position with a leftward tilt. A Pfannenstiel skin incision was made with the scalpel. The incision was carried down to the fascia with a bovie. The fascia was incised and extended laterally with Sorenson scissors. The superior aspect of the fascia was grasped with Israel clamps. The underlying rectus muscle was dissected off sharply with Sorenson scissors. In a similar fashion, the inferior aspect of the fascia was elevated with Israel clamps and the rectus muscle and pyramidalis were dissected off. Excellent hemostasis was achieved with the bovie. The rectus muscle was in the midline down to the level of the pubic symphysis. Pre-peritoneal fatty tissue was bluntly dissected to expose the peritoneum. The peritoneum was found to be free of adherent bowel and entered sharply with Sorenson scissors. The peritoneal incision was extended superiorly and inferiorly to the bladder reflection with good visualization of the bladder. The bladder blade was inserted and vesicouterine peritoneum was identified. Intraabdominal survey revealed scant, clear peritoneal fluid and the thinned-out lower uterine segment. The vesicouterine peritoneum was opened with scissors and the bladder flap was developed. The bladder blade was repositioned to keep the bladder out of the operative field. The lower uterine segment was incised with a scalpel. The amniotic sac was ruptured with an Allis clamp and clear fluid was noted. The uterine incision was extended bluntly with lateral and upward traction. The fetus was in right occiput transverse position. The head was elevated out of the pelvis with special attention paid to avoid using the uterine incision as a fulcrum. Gentle fundal pressure was applied once the head was brought into the incision. The was delivered with no difficulty. The mouth and nose were suctioned with a bulb. The cord was clamped and cut. was noted to be spontaneously crying. The was handed off to the cigar making machine operator. IV oxytocin was initiated to facilitate uterine contractions. The placenta was delivered intact with manual massage of uterine fundus. The uterus was then exteriorized and the inside of the uterus was gently wiped with a lap sponge to assure complete removal of placental membranes. The uterine incision was closed with a 0-Polysorb suture in a running locked fashion. A second imbricating layer of 0- Polysorb was placed along the incision. The ovaries and tubes were found to be normal. The LigaSure device was used to sequentially cauterize and cut the right fallopian tube from the fimbriated end to the right uterine cornua. This process was repeated on the left fallopian tube. The uterus and ovaries were then gently returned to the abdominal cavity. The blood clots and fluid were wiped out of the abdomen and pelvis with moist laparotomy sponges. The pelvis was copiously suction irrigated.The uterine incision was reinspected and excellent hemostasis was noted. The fascial layer was closed with a 0-Vicryl suture. The subcutaneous tissue was reapproximated with 2-0 Plain Gut. The skin was closed with 4-0 Monocryl in a subcuticular fashion. The patient tolerated the procedure well. All the counts were correct times two. The patient was taken to the recovery room in a stable condition.
[2023-04-03] MEDS ORDERED: OXYTOCIN 30 UNITS/500 ML NS 30 UNIT in SALINE 1 500ML.BAG IV SCH (13:45)
[2023-04-03] MEDS ORDERED: INFLUENZA VACC (6 MOS-64 YRS) 60 MCG/0.5 ML SYRINGE IM ONE (15:30)
[2023-04-03] MEDS: LACTATED RINGERS 1,000 ML IV SCH (16:11)
[2023-04-03] MEDS: ACETAMINOPHEN TAB 500 MG TAB PO SCH ×2 (16:11→22:14)
[2023-04-03] MEDS: IBUPROFEN 600 MG TAB PO SCH (18:49)
[2023-04-03] MEDS: SENNOSIDES-DOCUSATE SODIUM 1 EACH TAB PO SCH (20:31)
[2023-04-03] MEDS: SERTRALINE 50 MG TAB PO SCH (20:32)
[2023-04-04] MEDS: diphenhydrAMINE 25 MG CAP PO PRN ×3 (00:28→13:51)
[2023-04-04] MEDS: IBUPROFEN 600 MG TAB PO SCH ×5 (00:28→23:51)
[2023-04-04] MEDS: LACTATED RINGERS 1,000 ML IV SCH ×2 (01:06→04:17)
[2023-04-04] MEDS: ACETAMINOPHEN TAB 500 MG TAB PO SCH ×4 (04:28→21:04)
[2023-04-04 05:33] LABS: Basophils % (A) 0 %; Eosinophils % (A) 0 %; HCT 33.6 % (34.0-46.0); HGB 11.4 gm/dL (11.4-16.0); Lymphocytes # (A) 1.8 k/uL (1.0-4.8); Lymphocytes % (A) 16 %; MCH 30.6 pg (25.0-35.0); MCHC 33.8 g/dL (31.0-37.0); MCV 90.6 fL (80.0-100.0); Mean Platelet Volume 8.8; Monocytes # (A) 0.6 k/uL (0-1.0); Monocytes % (A) 5 %; Neutrophils # (A) 8.3 k/uL (1.3-7.7); Neutrophils % (A) 75 %; Platelet Count 227 k/uL (150-450); RBC 3.72 m/uL (3.80-5.40); RDW 13.8 % (11.5-15.5)
--- NOTE | 2023-04-04 08:22 | P.PNOBGPC ---
Subjective - Subjective Principal diagnosis: s/p repeat section with bilateral salpingectomy Interval history: The patient is doing well this morning and had no acute events overnight. She has no complaints this morning. She reports minimal lochia, voiding without difficulty, ambulating, and eating/drinking without nausea or vomiting. She has not yet passed flatus. She is her infant without difficulty. She denies chest pain, shortness of breathing, fevers, or chills overnight. She denies pain or swelling in the legs. Patient reports: Reports appetite normal, Reports voiding normally, Reports pain well controlled, Reports ambulating normally : doing well Objective - Vital Signs Latest vital signs: Vital Signs Temp Pulse Resp BP Pulse Ox 04/04/23 05:32 17 04/04/23 04:00 98.4 F 73 18 110/67 94 L 04/04/23 02:00 18 04/04/23 00:00 98 F 80 18 132/75 97 04/03/23 22:00 17 04/03/23 20:00 98 F 72 18 122/78 98 04/03/23 18:00 18 04/03/23 16:01 18 04/03/23 15:03 98.6 F 84 18 125/58 100 04/03/23 14:33 75 18 112/52 98 04/03/23 14:03 84 18 126/58 98 04/03/23 14:01 18 04/03/23 13:48 97.2 F L 88 18 138/60 98 04/03/23 13:33 91 18 141/59 97 04/03/23 13:18 96 18 123/62 97 04/03/23 13:03 97.1 F L 85 18 121/57 99 04/03/23 13:01 18 04/03/23 10:23 97.8 F 95 18 126/75 97 Intake and Output 04/03/23 04/04/23 04/04/23 22:59 06:59 14:59 Intake Total 600 Output Total 650 Balance -50 Intake: Oral 600 Output: Urine 650 Uretheral (Ramirez) 500 Other: # Voids 1 - Exam Extremities: Present: normal Abdomen: Present: normal appearance, soft Incision: Present: normal, dry, intact Uterus: Present: normal, firm - Labs Labs: Abnormal Lab Results - Last 24 Hours (Table) 04/03/23 04/04/23 Range/Units 10:46 04:32 WBC 10.7 H 11.0 H (3.8-10.6) k/uL RBC 3.72 L (3.80-5.40) m/uL Hct 33.6 L (34.0-46.0) % Neutrophils # 8.3 H 8.3 H (1.3-7.7) k/uL Assessment and Plan Assessment: 32 year old POD#1 s/p repeat section with bilateral salpingectomy Plan: 1. Postoperative. Patient meeting all postoperative milestones appropriately. Continue to monitor. 2. Viable female infant. At bedside doing well, nursing well. Dispo: Anticipate discharge home tomorrow on POD#2.
--- NOTE | 2023-04-04 08:27 | P.PN ---
Progress Note - Text Progress Note Date: 04/04/23 Patient seen upright in bed POD #1 C/S under SAB with intrathecal duramorph for post-op pain management. Doing well today and states a VAS 0f 3-4/10 when seated and VAS 5-6/10 while ambulating to bathroom. Had some pruritis which is improved today. Denies N/V, back pain, lower extremity paresthesias, visual/auditory disturbances and headache. Overall happy with her anesthetic management.
[2023-04-04] MEDS: SENNOSIDES-DOCUSATE SODIUM 1 EACH TAB PO SCH ×2 (08:40→19:43)
[2023-04-04] MEDS: SERTRALINE 50 MG TAB PO SCH (21:04)
[2023-04-05] MEDS: ACETAMINOPHEN TAB 500 MG TAB PO SCH ×2 (03:15→10:17)
[2023-04-05] MEDS: IBUPROFEN 600 MG TAB PO SCH (06:02)
[2023-04-05] MEDS: SENNOSIDES-DOCUSATE SODIUM 1 EACH TAB PO SCH (08:18)
[2023-04-05 08:24] VITALS: BP 117/79; PULSE 75; RESP 14; TEMP 97.8
--- NOTE | 2023-04-05 10:42 | P.DS ---
Providers Date of admission: 04/03/23 09:55 Expected date of discharge: 04/05/23 Attending physician: Kimberly Malcolm MD Primary care physician: Stated None Hospital Course: Ms. Morales is a 32 year old now POD#2 s/p scheduled repeat section with bilateral salpingectomy. Just prior to her section, the patient was diagnosed with gestational hypertension. The patient's blood pressures have been normotensive to mild range (<150s/90s) since delivery. The patient is doing well this morning and had no acute events overnight. She has no complaints this morning. She reports minimal lochia, passing flatus, voiding without difficulty, ambulating, and eating/drinking without nausea or vomiting. doing well at bedside. She denies chest pain, shortness of breathing, fevers, or chills overnight. She denies pain or swelling in the legs. She denies headache, visual distrubances, and right upper quadrant pain. Postoperative restrictions are reviewed with the patient including pelvic rest for 6 weeks, no lifting heavier than 15 pounds for 6 weeks. The patient is encouraged to call the office if she experiences any heavy bleeding, foul-smelling discharge, breast complaints, or any if she has any other concerns. She will follow up in the office with in 1 week for blood pressure check and in 2 weeks for postoperative exam. All questions are answered. Assessment: 32 year old POD#2 s/p scheduled repeat section with bilateral salpingectomy Patient Condition at Discharge: Good Plan - Discharge Summary Discharge Rx Participant: No New Discharge Prescriptions: No Action Pnv No.95/Ferrous Fum/Folic AC [ Multivitamin Tablet] 1 each PO DAILY Sertraline [Zoloft] 50 mg PO HS Cetirizine HCl [Zyrtec] 10 mg PO DAILY Aspirin [Adult Low Dose Aspirin EC] 81 mg PO DAILY Discharge Medication List Pnv No.95/Ferrous Fum/Folic AC [ Multivitamin Tablet] 1 each PO DAILY 08/06/17 [History] Aspirin [Adult Low Dose Aspirin EC] 81 mg PO DAILY 03/28/23 [History] Cetirizine HCl [Zyrtec] 10 mg PO DAILY 03/28/23 [History] Sertraline [Zoloft] 50 mg PO HS 03/28/23 [History] Follow up Appointment(s)/Referral(s): Kimberly Malcolm MD [STAFF PHYSICIAN] - 1 Week (blood pressure check) Activity/Diet/Wound Care/Special Instructions: Instructions 1. Do not begin any exercise program for 3 weeks. 2. Do not resume sexual relations for 6 weeks or longer if uncomfortable. 3. You may take tub baths or showers at any time. 4. You may use tampons if desired after 6 weeks. 5. Keep any areas repaired with stitches clean and dry. 6. If you are not nursing, wear a good fitting, supportive bra during the day and limit fluid intake for at least 1 week to prevent breast engorgement. 7. Call the office, , within the next week to make appointment for your 6 week checkup if it has not already been made. 8. Report any of the following occurrences to the doctor promptly: a. Heavy, excessive bleeding b. Chills, fever c. Burning or frequency of urination d. Pain or redness and breasts if nursing e. Increasing pain or swelling of vulva (stitches). In addition to the above instructions, the following additional should be followed: 1. No heavy lifting or straining (exercising) until after 6 week checkup. 2. Keep abdominal incision clean and dry: You may wear a dressing if more comfortable. 3. Make office appointment for 2 weeks after delivery date. Discharge Disposition: HOME SELF-CARE
== END 2023-04-05 11:00 | disposition home or self-care (01) | DRG 785 ==
LOC: 4FBP 09:55
PROVIDERS: ADMIT Obstetrics & Gynecology; ATTEND Obstetrics & Gynecology
PROC: 10D00Z1 Extraction of Products of Conception, Low, Open Approach (ICD-10-PCS; principal; 2023-04-03 12:00)
PROC: 0UT70ZZ Resection of Bilateral Fallopian Tubes, Open Approach (ICD-10-PCS; principal; 2023-04-03 12:00)
PROC: 3E02340 Introduction of Influenza Vaccine into Muscle, Percutaneous Approach (ICD-10-PCS; principal; 2023-04-03 12:00)
DX: O34.211 Maternal care for low transverse scar from previous cesarean delivery (principal); O99.344 Other mental disorders complicating childbirth; F32.A Depression, unspecified; O36.63X0 Maternal care for excessive fetal growth, third trimester, not applicable or unspecified; O32.2XX0 Maternal care for transverse and oblique lie, not applicable or unspecified; O34.593 Maternal care for other abnormalities of gravid uterus, third trimester; O13.4 Gestational [pregnancy-induced] hypertension without significant proteinuria, complicating childbirth; O99.73 Diseases of the skin and subcutaneous tissue complicating the puerperium; L29.9 Pruritus, unspecified; Z23 Encounter for immunization; Z79.899 Other long term (current) drug therapy; Z79.82 Long term (current) use of aspirin; Z30.2 Encounter for sterilization; Z3A.39 39 weeks gestation of pregnancy; Z37.0 Single live birth
CPT/HCPCS: 85025; 86850; 86900; 86901; 88302; 90686